=== PATIENT | male | born 1985 | race American Indian/Alaskan Native ===

== ENCOUNTER 2021-03-20 19:12 | Emergency (ER) | payer SELFPAY ==
[2021-03-20 19:29] VITALS: BP 137/68
[2021-03-20] MEDS ORDERED: IBUPROFEN 600 MG TAB PO ONE (19:37)
[2021-03-20] MEDS ORDERED: LIDOCAINE-MPF (1%) 10 MG/1 ML VIAL 5 ML INFILTRATI ONE (19:37)
[2021-03-20] MEDS ORDERED: TETANUS,DIPH,PERTUSS(ACELL) VACCINE 0.5 ML SYRINGE IM ONE (19:38)
--- NOTE | 2021-03-20 20:27 | Emergency Department Report ---
ED Upper Extremity Inj HPI - General Chief Complaint: Wound/Laceration Stated Complaint: LT FINGER INJURY Source: patient Mode of arrival: Ambulatory Limitations: No Limitations - History of Present Illness Initial Comments: Patient is a 35-year-old -[place] male with no past medical history and who is not up-to-date with his tetanus vaccinations presents to the ED with acute onset painful bleeding left palm laceration after he accidentally cut his left palm when cutting chicken to prepare for dinner about 1 hour ago. Patient states that the bleeding is well controlled at this time. Patient denies numbness and tingling or weakness of left arm, dizziness, lightheadedness, nausea and vomiting, fall, heavy lifting or headache. MD Complaint: Injury to:: left, hand (left palm bleeding laceration) -: Sudden, hour(s) (1) Other Extremity Injury: Hand: Left (left palm) Other Injuries: none Place: home Severity scale (0 -10): 6 Improves With: none Worsens With: movement of extremity Context: laceration (left palm laceration) Associated Symptoms: denies other symptoms. denies: weakness, numbness, neck pain, suspects foreign body, nausea/vomiting, heard/felt popping sensat - Related Data Previous Rx's Medication Instructions Recorded Last Taken Type Ibuprofen [Motrin] 600 mg PO Q8H PRN #24 tablet 03/20/21 Unknown Rx cephALEXin [Keflex] 500 mg PO Q8HR #30 cap 03/20/21 Unknown Rx Allergies Allergy/AdvReac Type Severity Reaction Status Date / Time No Known Allergies Allergy Unverified 03/20/21 19:23 ED Review of Systems ROS: Stated complaint: LT FINGER INJURY Other details as noted in HPI Constitutional: denies: chills, fever Eyes: denies: eye pain, eye discharge, vision change ENT: denies: ear pain, throat pain Respiratory: denies: cough, shortness of breath, wheezing Cardiovascular: denies: chest pain, palpitations Endocrine: no symptoms reported Gastrointestinal: denies: abdominal pain, nausea, diarrhea Genitourinary: denies: urgency, dysuria Musculoskeletal: arthralgia (Painful bleeding left palm laceration). denies: back pain, joint swelling Skin: other (Bleeding left palm laceration wound). denies: rash, lesions Neurological: denies: headache, weakness, paresthesias Psychiatric: denies: anxiety, depression Hematological/Lymphatic: denies: easy bleeding, easy bruising ED Past Medical Hx - Past Medical History Previous Medical History?: No - Surgical History Past Surgical History?: No - Social History Smoking Status: Current Every Day Smoker - Medications Home Medications: Home Medications Medication Instructions Recorded Confirmed Last Taken Type Ibuprofen [Motrin] 600 mg PO Q8H PRN #24 tablet 03/20/21 Unknown Rx cephALEXin [Keflex] 500 mg PO Q8HR #30 cap 03/20/21 Unknown Rx ED Physical Exam - General Limitations: No Limitations General appearance: alert, in no apparent distress - Head Head exam: Present: atraumatic, normocephalic, normal inspection - Eye Eye exam: Present: normal appearance, PERRL, EOMI Pupils: Present: normal accommodation - ENT ENT exam: Present: normal exam, normal orophraynx, mucous membranes moist, TM's normal bilaterally, normal external ear exam - Neck Neck exam: Present: normal inspection, full ROM - Respiratory Respiratory exam: Present: normal lung sounds bilaterally. Absent: respiratory distress, wheezes, rales, rhonchi, stridor, chest wall tenderness, accessory muscle use, decreased breath sounds, prolonged expiratory, other - Cardiovascular Cardiovascular Exam: Present: regular rate, normal rhythm, normal heart sounds. Absent: systolic murmur, diastolic murmur, rubs, gallop - GI/Abdominal GI/Abdominal exam: Present: soft, normal bowel sounds. Absent: tenderness, guarding, rebound, hyperactive bowel sounds, hypoactive bowel sounds, organomegaly - Extremities Exam Extremities exam: Present: normal inspection, full ROM, tenderness (Palpable localized left palm tenderness due to a bleeding 3 cm laceration), normal capillary refill. Absent: pedal edema, joint swelling, calf tenderness - Back Exam Back exam: Present: normal inspection, full ROM. Absent: tenderness, CVA tenderness (R), CVA tenderness (L), muscle spasm, paraspinal tenderness, vertebral tenderness - Neurological Exam Neurological exam: Present: alert, oriented X3, CN II-XII intact, normal gait, reflexes normal - Psychiatric Psychiatric exam: Present: normal affect, normal mood - Skin Skin exam: Present: warm, dry, intact, normal color, other (Bleeding 3 cm laceration on left palm). Absent: rash ED Course Vital Signs 03/20/21 19:15 Temperature 98.5 F Pulse Rate 81 Respiratory 16 Rate Blood Pressure 137/68 O2 Sat by Pulse 99 Oximetry - Laceration /Wound Repair Left Palm Hand Wound Location: upper extremity (Left palm laceration) Wound Length (cm): 3 Wound's Depth, Shape: superficial, linear Wound Explored: contaminated Irrigated w/ Saline (ccs): 200 Betadine Prep?: Yes Anesthesia: 1% Lidocaine Volume Anesthetic (ccs): 5 Wound Debrided: extensive Wound Repaired With: sutures Suture Size/Type: 4:0, proline Number of Sutures: 7 Layer Closure?: No Sterile Dressing Applied?: No Progress: Patient tolerated procedure well. ED Medical Decision Making - Medical Decision Making This is a 35-year-old -[place] male with no past medical history and who is not up-to-date with his tetanus vaccinations presents to the ED with acute onset painful bleeding left palm laceration after he accidentally cut his left palm when cutting chicken to prepare for dinner about 1 hour ago. Patient states that the bleeding is well controlled at this time. In the ED, patient is alert and oriented x3 and is not in any distress. Patient was treated for pain and also received booster tetanus vaccinations. Left palm bleeding laceration was cleaned extensively and sutured per protocol. The wound was then dressed appropriately and the patient was discharged home on pain medication and prophylactic antibiotics. Patient was advised to return to the ED immediately if symptoms get worse, otherwise follow-up with his primary care physician in 7 to 10 days for reevaluation. Patient was advised to return to the ED or to his primary care physician in 12 to 14 days for suture removal. - Differential Diagnosis palm laceration; hand injury Critical care attestation.: If time is entered above; I have spent that time in minutes in the direct care of this critically ill patient, excluding procedure time. ED Disposition Clinical Impression: Laceration of left palm without complication Qualifiers: Encounter type: initial encounter Qualified Code(s): S61.412A - Laceration without foreign body of left hand, initial encounter Disposition: HOME / SELF CARE / HOMELESS Is pt being admited?: No Does the pt Need Aspirin: No Condition: Stable Instructions: Laceration Care, Adult, [id number], Sutured Wound Care, [id number] Additional Instructions: Take medication with food, drink plenty of fluids and follow-up with your primary care physician in 7 to 10 days for reevaluation. Return to the ED immediately if your symptoms get worse. Otherwise return to the ED or to your primary care physician in 12 to 14 days for suture removal. Prescriptions: cephALEXin [Keflex] 500 mg PO Q8HR #30 cap Ibuprofen [Motrin] 600 mg PO Q8H PRN #24 tablet PRN Reason: Pain Referrals: [facility] [Provider Group] - 7-10 days Time of Disposition: 20:26 Print Language: [place]
== END 2021-03-20 21:20 | disposition home or self-care (01) ==
LOC: ED 19:12
DX: S61.412A Laceration without foreign body of left hand, initial encounter (principal); F17.200 Nicotine dependence, unspecified, uncomplicated; W26.0XXA Contact with knife, initial encounter; Y93.89 Activity, other specified; Y92.89 Other specified places as the place of occurrence of the external cause; Y99.8 Other external cause status
CPT/HCPCS: 90471; 90715; 99282

== ENCOUNTER 2021-04-04 11:29 | Emergency (ER) | payer SELFPAY ==
[2021-04-04 11:33] VITALS: BP 116/75
--- NOTE | 2021-04-04 11:49 | Emergency Department Report ---
Suture/Staple Removal - [facility] Chief Complaint: Laceration/Recheck/Suture Stated Complaint: stiches removal Time Seen by Provider: 04/04/21 11:38 When Sutures or [place] Placed: 11-14 Days Ago Wound Location: left index finger ED Review of Systems ROS: Stated complaint: stiches removal Other details as noted in HPI Comment: All other systems reviewed and negative Skin: other (laceration s/p repair ) ED Past Medical Hx - Social History Smoking Status: Current Every Day Smoker - Medications Home Medications: Home Medications Medication Instructions Recorded Confirmed Last Taken Type Ibuprofen [Motrin] 600 mg PO Q8H PRN #24 tablet 03/20/21 Unknown Rx cephALEXin [Keflex] 500 mg PO Q8HR #30 cap 03/20/21 Unknown Rx Suture Removal Exam - Exam General: Vital signs noted. No distress. Alert and acting appropriately. Wound: No Pathologic Erythema, No Tenderness, No Drainage, No Pus, No Wound Dehiscence Other Systems: All other systems reviewed and are unremarkable. ED Course Vital Signs 04/04/21 11:32 Temperature 98.3 F Pulse Rate 59 L Respiratory 18 Rate Blood Pressure 116/75 O2 Sat by Pulse 98 Oximetry - Procedure Description Procedures done: Suture removal -- base of Left index finger on palmar side. All sutures removed. Wound healing well without complications. Critical care attestation.: If time is entered above; I have spent that time in minutes in the direct care of this critically ill patient, excluding procedure time. ED Disposition Clinical Impression: Visit for suture removal Disposition: 01 HOME / SELF CARE / HOMELESS Is pt being admited?: No Does the pt Need Aspirin: No Condition: Stable Instructions: Wound Closure Removal, Care After Additional Instructions: Continue to keep wound clean daily with soap and water. Dry well after each cleaning, then apply thin layer of neosporin to wound. Do this daily for another week. Follow-up with PCP as needed. Return to the ER if your symptoms changes or worsens in any way. Referrals: [facility] [Provider Group] - 3-5 Days Time of Disposition: 11:49
== END 2021-04-04 12:19 | disposition home or self-care (01) ==
LOC: ED 11:29
DX: S61.211D Laceration without foreign body of left index finger without damage to nail, subsequent encounter (principal); Z48.01 Encounter for change or removal of surgical wound dressing; X58.XXXD Exposure to other specified factors, subsequent encounter